=== PATIENT | female | born 1980 | race Caucasian/White ===

== ENCOUNTER 2021-06-26 14:11 | Emergency (ER) | payer OTHER ==
[~2021-06-26] VITALS: Ht 160 cm; Wt 86.2 kg
[2021-06-26] MEDS ORDERED: NORVASC5 MG PO (14:19)
[2021-06-26] MEDS ORDERED: NORFLEX100 MG PO (15:54)
[2021-06-26 16:03] VITALS: BP 145/70
== END 2021-06-26 16:04 | disposition home or self-care (01) ==
LOC: M.ERS 14:11
DX: M25.571 Pain in right ankle and joints of right foot (principal); Z79.899 Other long term (current) drug therapy